=== PATIENT | female | born 1960 | race Hispanic/Latino ===

== ENCOUNTER 2021-05-14 07:20 | Day surgery (SDC) | payer BC ==
[~2021-05-14] VITALS: Ht 152.4 cm; Wt 47.7 kg
[~2021-05-14 07:20] MED LIST: VITAMIN D310 MC1
--- NOTE | 2021-05-14 09:14 | NUR ---
05/14/21 0914 Gabi Odell 0910 PT ARRIVED TO PACU ON 2L VIA NC PT WAKES AND IS REORIENTED TO PACU. PT DENIES PAIN AND PLAN OF CARE DISCUSSED. VSS. 0911 O2 REMOVED. 0914 AT BEDSIDE TALKING TO PT.
--- NOTE | 2021-05-17 19:30 | OR ---
[facility] [address], [place] [address] Signed DATE OF OPERATION: 05/14/2021 SURGEON: Sylvester Jimenez MD PREOPERATIVE DIAGNOSIS: Colon screening. POSTOPERATIVE DIAGNOSIS: Small sessile polyp at 80 cm (excised). PROCEDURE: Total colonoscopy to cecum with cold snare polypectomy x1. ANESTHESIA: Intravenous sedation, fentanyl 150 mcg and Versed 4 mg. INDICATIONS: This 60-year-old woman is a patient of Dr. Sawant. 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 She is here for consideration of screening colonoscopy. She is anticipated to have colonoscopy a year and a half ago, but due to the COVID pandemic and numerous other issues, was unable to follow through with that. She has no symptoms of bleeding, diarrhea, or constipation and has no family history of colon cancer that she is aware of. She is admitted to undergo colonoscopy. She understands the risks of bleeding, infection, and perforation. FINDINGS: The prep was excellent. Complete colonoscopy was undertaken of the cecum without question. She had only one small sessile adenomatous appearing polyp at 80 cm, which was excised with cold snare polypectomy technique. DESCRIPTION OF PROCEDURE: The patient was brought to the endoscopy suite and placed in lateral decubitus position given intravenous sedation to the point of slurred speech and nystagmus. Digital rectal examination was normal. An Olympus video colonoscope was passed in the rectum and manipulated throughout the colon ultimately intubating the cecum itself. The ileocecal valve and appendiceal orifice were normal. She did require abdominal wall stabilization to pass beyond hepatic flexure was noted. Electronically Signed By: SYLVESTER JIMENEZ MD 05/17/211929 PATIENT NAME: SONAL STANFORD OPERATIVE REPORT DATE OF : 60 REPORT #: [id number] PHYSICIAN: SYLVESTER JIMENEZ MD PCP: JAZMÍN SAWANT MD REPORT IS CONFIDENTIAL AND NOT TO BE RELEASED WITHOUT AUTHORIZATION [facility] [address] [place] [address] [place], [place] [address] Signed The scope was withdrawn from the cecum and careful examination upon withdrawal of scope showed no sign of abnormality until approximately 80 cm from the anal verge, where a small sessile polyp was noted, this was excised with cold snare technique. The scope was further withdrawn. Remaining colon was normal. Retroflexed view was normal as well. The scope was removed. The patient was taken to the recovery room in good condition. CONCLUDING DIAGNOSIS: Small polyp at 80 cm. PLAN: Recommend repeat colonoscopy in three years or sooner if symptoms should occur. She will return to the ongoing care of Dr. Sawant otherwise. MD PACHECO Lopez/ALESSANDRA /[id number] cc: Jazmín Sawant MD Copies: JAZMÍN SAWANT MD ~ Electronically Signed By: SYLVESTER JIMENEZ MD 05/17/211929 PATIENT NAME: SONAL STANFORD OPERATIVE REPORT DATE OF : 60 REPORT #: [id number] PHYSICIAN: SYLVESTER JIMENEZ MD PCP: JAZMÍN SAWANT MD REPORT IS CONFIDENTIAL AND NOT TO BE RELEASED WITHOUT AUTHORIZATION
== END 2021-05-14 09:56 | disposition home or self-care (01) ==
LOC: OPS 07:20 → DS 07:20 → OPS 08:30 → DS 08:30 → OPS 09:56
PROVIDERS: ATTEND Surgery
PROC: 0DBE8ZX Excision of Large Intestine, Via Natural or Artificial Opening Endoscopic, Diagnostic (ICD-10-PCS; principal; 2021-05-14 08:30)
DX: Z12.11 Encounter for screening for malignant neoplasm of colon (principal); D12.6 Benign neoplasm of colon, unspecified; Z98.890 Other specified postprocedural states
CPT/HCPCS: 99153; A9270; G0500; J2250; J3010; J7121

== ENCOUNTER 2024-05-13 11:50 | Day surgery (SDC) | payer BC ==
[~2024-05-13] VITALS: Ht 152.4 cm; Wt 47.7 kg
--- NOTE | ~2024-05-13 | OR ---
[facility] [address] [place], [place] [address] Draft DATE OF OPERATION: 05/13/2024 SURGEON: Sylvester Jimenez MD PREOPERATIVE DIAGNOSIS: History of polyps 80 cm in 2020. POSTOPERATIVE DIAGNOSIS: Normal colon to cecum. PROCEDURE: Total colonoscopy to cecum. CLINICAL RESEARCH SPECIALIST: Dawson Jimenez. ANESTHESIA: Intravenous sedation; fentanyl 150 mcg, Versed 6 mg. INDICATION: This 63-year-old woman is a patient of Dr. Sawant. She is known to have resection of an adenomatous polyp at 80 cm in 2020. She remained symptom free having no bleeding, diarrhea or constipation and no family history of colon cancer. She is admitted at this time to undergo colonoscopy for surveillance. She understands the risk of bleeding, infection, and perforation. FINDINGS: The prep was excellent. Complete colonoscopy was undertaken of the cecum. Full intubation of cecum was accomplished. There was no evidence of polyps, diverticular formation, colitis, or cancer. Retroflexed view was normal as well. DESCRIPTION OF PROCEDURE: The patient was brought to the endoscopy suite and placed in lateral decubitus position, given intravenous sedation to the point of slurred speech and nystagmus. Digital rectal examination was normal. An Olympus video colonoscope was passed in the rectum and manipulated throughout the colon ultimately intubating the cecum itself. The ileocecal valve and appendiceal orifice were normal. The scope was withdrawn and examination undertaken showed no sign of polyps, diverticular formation, colitis, or cancer. Retroflexed view was normal as PATIENT NAME: SONAL STANFORD OPERATIVE REPORT DATE OF : 60 REPORT #: [id number] PHYSICIAN: SYLVESTER JIMENEZ MD PCP: JAZMÍN SAWANT MD REPORT IS CONFIDENTIAL AND NOT TO BE RELEASED WITHOUT AUTHORIZATION [facility] [address] [place], [place] [address], [place] [address] [address] well. The scope was removed. The patient was taken to the recovery room in good condition. CONCLUDING DIAGNOSIS: Normal colon to cecum. ADDENDUM: The patient was also concurrently examined for a nodule of her right forehead. An ultrasound was performed with SonoSite device under my direction showing the lesion likely to be bony and uncertain if crossing entirely through the calvarial surface. On that basis, the CT scan will be ordered to better characterize that lesion rather than attempt excision had been considered. Sylvester Jimenez MD JM/MODL /[id number] cc: MD Dawson Nassar [place] Copies: JAZMÍN SAWANT MD ~ PATIENT NAME: SONAL STANFORD OPERATIVE REPORT DATE OF : 60 REPORT #: [id number] PHYSICIAN: SYLVESTER JIMENEZ MD PCP: JAZMÍN SAWANT MD REPORT IS CONFIDENTIAL AND NOT TO BE RELEASED WITHOUT AUTHORIZATION
[~2024-05-13 11:50] MED LIST changes: +IBLOOD GLUCOSE TEST STRIP 1 EA TEST VI PRN; +LACTATED RINGER'S 1,000 ML IV SCH; +LIDOCAINE HCL 1% 5 ML SDV INJ ONE; +MIDAZOLAM HCL 5 MG/5 ML VIAL IV PRN; +fentaNYL citrate 100 MCG/2 ML VIAL IV PRN
[2024-05-13 12:11] VITALS: BP 130/63
[2024-05-13] MEDS ORDERED: fentaNYL citrate 100 MCG/2 ML VIAL ONE (14:32)
[2024-05-13] MEDS ORDERED: MIDAZOLAM HCL 5 MG/5 ML VIAL ONE (14:32)
--- NOTE | 2024-05-13 15:33 | NUR ---
05/13/24 1533 Miranda Miller 1527-PATIENT ARRIVED TO PACU ON 2L NC RR EVEN. PATIENT LAYING LEFT LATERAL HOB ELEVATED. DROWSY DENIES PAIN OR NAUSEA. IVF INFUSING. ABDOME SOFT. PATIENT DOZES BACK TO SLEEP.
[2024-05-13 16:21] VITALS: BP 112/55
== END 2024-05-13 16:40 | disposition home or self-care (01) ==
LOC: DS 11:50
PROVIDERS: ATTEND Surgery
PROC: 0DJD8ZZ Inspection of Lower Intestinal Tract, Via Natural or Artificial Opening Endoscopic (ICD-10-PCS; principal; 2024-05-13 13:15)
DX: Z12.11 Encounter for screening for malignant neoplasm of colon (principal); L98.8 Other specified disorders of the skin and subcutaneous tissue; Z86.0101 Personal history of adenomatous and serrated colon polyps
CPT/HCPCS: 99153; G0500; J2250; J3010; J7121